=== PATIENT | male | born 1935 | race Caucasian/White ===

== ENCOUNTER → 2017-11-21 | Outpatient (CLI) | payer MEDICARE, BC ==
[~2017-11-21] MED LIST: ASPI325T6 PO; ASPIRIN 81M81 MG/TA2 PO; CHEMO; COUMADIN 5MG5 MG/TAB PO; DOXYCYCLINE 10100 MG PO; NO HOME MEDICATIONS; NORCO 325 MG-51 TAB PO; PRAVACHOL 40MG40 MG PO; VENTOLIN0.09 MG IH; ZOVIRAX400 MG PO; ZYLOPRIM 300MG300 MG PO
== END ==
LOC: COL.VAS 09:22
DX: I82.B12 Acute embolism and thrombosis of left subclavian vein (principal); I82.612 Acute embolism and thrombosis of superficial veins of left upper extremity; Z86.2 Personal history of diseases of the blood and blood-forming organs and certain disorders involving the immune mechanism

== ENCOUNTER → 2018-03-23 | Outpatient (CLI) | payer MEDICARE, BC | LOC: COL.RAD 11:33 | DX: G31.9 Degenerative disease of nervous system, unspecified (principal); I67.82 Cerebral ischemia ==

== ENCOUNTER → 2018-04-03 | Outpatient (CLI) | payer MEDICARE, BC | LOC: COL.CARD 10:13 | DX: R41.3 Other amnesia (principal); R55 Syncope and collapse ==

== ENCOUNTER → 2018-05-30 | Outpatient (CLI) | payer MEDICARE, BC | LOC: COL.RAD 09:14 | DX: Z08 Encounter for follow-up examination after completed treatment for malignant neoplasm (principal); R91.8 Other nonspecific abnormal finding of lung field | CPT/HCPCS: Q9967 ==

== ENCOUNTER 2018-08-24 05:03 | Day surgery (SDC) | payer MEDICARE, BC ==
[~2018-08-24] VITALS: Ht 185.4 cm; Wt 76.9 kg
[2018-08-24 05:44] VITALS: BP 152/69; PULSE 69; TEMP 97.5
[2018-08-24] MEDS ORDERED: TYLENOL 500MG500 MG PO (05:47)
[2018-08-24] MEDS ORDERED: ELIQUIS 5MG PO (05:47)
[2018-08-24 08:56] VITALS: BP 126/60; PULSE 66
[2018-08-24] MEDS ORDERED: NORCO 325 MG-51 TAB PO (09:07)
[2018-08-24] MEDS ORDERED: COLACE 100100 MG/CAP PO (09:07)
[2018-08-24 09:11] VITALS: BP 134/62; PULSE 66
[2018-08-24 09:26] VITALS: BP 128/57; PULSE 68
[2018-08-24 09:41] VITALS: BP 136/68; PULSE 69
[2018-08-24 09:56] VITALS: BP 125/64; PULSE 64
== END 2018-08-24 10:23 | disposition home or self-care (01) ==
LOC: SDCO 05:03
DX: K40.90 Unilateral inguinal hernia, without obstruction or gangrene, not specified as recurrent (principal); D17.6 Benign lipomatous neoplasm of spermatic cord; M19.90 Unspecified osteoarthritis, unspecified site; D75.1 Secondary polycythemia; N18.9 Chronic kidney disease, unspecified; R43.2 Parageusia; F17.210 Nicotine dependence, cigarettes, uncomplicated; C91.90 Lymphoid leukemia, unspecified not having achieved remission; I82.90 Acute embolism and thrombosis of unspecified vein; Z79.01 Long term (current) use of anticoagulants; Z85.820 Personal history of malignant melanoma of skin; Z90.79 Acquired absence of other genital organ(s); Z90.49 Acquired absence of other specified parts of digestive tract; Z88.5 Allergy status to narcotic agent; Z88.1 Allergy status to other antibiotic agents; Z85.46 Personal history of malignant neoplasm of prostate; Z85.038 Personal history of other malignant neoplasm of large intestine; Z85.72 Personal history of non-Hodgkin lymphomas; Z80.42 Family history of malignant neoplasm of prostate
CPT/HCPCS: C1781; J2405; J2704; J3010; J7120

== ENCOUNTER 2018-10-04 15:26 | Inpatient (IN) | payer MEDICARE, BC ==
[~2018-10-04] VITALS: Ht 185.4 cm; Wt 75.9 kg
[~2018-10-04 15:26] MED LIST changes: +COLACE 100100 MG/CAP PO; +ELIQUIS 5MG PO; +TYLENOL 500MG500 MG PO
[2018-10-04 16:10] LABS: ARTERIAL BLD GAS O2 SATURATION 93.9 % (92-100); ARTERIAL BLD GAS TCO2 CT 22.6; ARTERIAL BLOOD GAS HCO3 21.8 meq/L (22-26); ARTERIAL BLOOD GAS PCO2 27.9 mmHg (35-45); ARTERIAL BLOOD GAS PO2 66.2 mmHg (80-100); ARTERIAL BLOOD GAS pH 7.51 (7.35-7.45)
[2018-10-04 16:10] LABS: HEMATOCRIT 40.3 % (42.0-52.0); HEMOGLOBIN 13.6 g/dl (13.5-18.0); MEAN CELL VOLUME 98 fl (80.0-100.0); MEAN CORPUSCULAR HEMOGLOBIN 33 pg (27.0-31.0); MEAN CORPUSCULAR HGB CONC 34 g/dl (33.0-37.0); MEAN PLATELET VOLUME 9.6 fl (7.4-10.4); PLATELET COUNT 250 K/mm3 (130-400); RED BLOOD COUNT 4.12 M/mm3 (4.20-5.60); REDCELL DISTRIBUTION WIDTH-CV 12.5 % (11.5-14.5)
[2018-10-04 16:29] LABS: ALBUMIN 3.5 gm/dL (3.5-5.0); BILIRUBIN,TOTAL 0.5 mg/dL (0.0-1.0); CALCIUM 9.1 mg/dL (8.4-10.2); CREATININE, serum 1.56 mg/dL (0.66-1.25); POTASSIUM 4.2 mmol/L (3.4-5.0); TOTAL PROTEIN 6.5 gm/dL (6.4-8.2)
[2018-10-04 16:31] LABS: BAND 7 % (0-10); LYMPHOCYTE 8 % (20.0-51.0); NEUTROPHILS 82 % (42.0-75.2); PLATELET ESTIMATE NORMAL (NORMAL)
[2018-10-04 16:38] LABS: TROPONIN-I 0.018 ng/mL (0.000-0.034)
[2018-10-04 16:40] LABS: C-REACTIVE PROTEIN 24.1 mg/dL (0.0-0.9)
[2018-10-04 19:54] VITALS: BP 130/51; PULSE 89; TEMP 97
[2018-10-05] VITALS (7 sets, daily range): BP systolic 123–149; BP diastolic 48–78; PULSE 66–76; TEMP 97.4–98.6
[2018-10-05 06:43] LABS: MEAN CELL VOLUME 99 fl (80.0-100.0); MEAN CORPUSCULAR HGB CONC 34 g/dl (33.0-37.0); MEAN PLATELET VOLUME 9.6 fl (7.4-10.4); PLATELET COUNT 180 K/mm3 (130-400); RED BLOOD COUNT 3.36 M/mm3 (4.20-5.60); REDCELL DISTRIBUTION WIDTH-CV 12.6 % (11.5-14.5)
[2018-10-05 06:54] LABS: HEMATOCRIT 33.3 % (42.0-52.0); HEMOGLOBIN 11.2 g/dl (13.5-18.0); MEAN CORPUSCULAR HEMOGLOBIN 33 pg (27.0-31.0)
[2018-10-05 06:58] LABS: CALCIUM 8.4 mg/dL (8.4-10.2); CREATININE, serum 1.29 mg/dL (0.66-1.25); MAGNESIUM 2.1 mg/dL (1.6-2.3); POTASSIUM 3.7 mmol/L (3.4-5.0)
[2018-10-05 07:21] LABS: BAND 29 % (0-10); LYMPHOCYTE 8 % (20.0-51.0); NEUTROPHILS 59 % (42.0-75.2)
[2018-10-05 07:22] LABS: PLATELET ESTIMATE NORMAL (NORMAL)
[2018-10-06 02:46] VITALS: BP 145/69; PULSE 68
[2018-10-06 06:12] LABS: MEAN CELL VOLUME 99 fl (80.0-100.0); MEAN CORPUSCULAR HEMOGLOBIN 33 pg (27.0-31.0); MEAN CORPUSCULAR HGB CONC 33 g/dl (33.0-37.0); MEAN PLATELET VOLUME 9.8 fl (7.4-10.4); PLATELET COUNT 198 K/mm3 (130-400); RED BLOOD COUNT 3.31 M/mm3 (4.20-5.60); REDCELL DISTRIBUTION WIDTH-CV 12.6 % (11.5-14.5)
[2018-10-06 06:16] LABS: HEMATOCRIT 32.9 % (42.0-52.0)
[2018-10-06 06:22] LABS: CALCIUM 8.5 mg/dL (8.4-10.2); CREATININE, serum 1.24 mg/dL (0.66-1.25); POTASSIUM 3.7 mmol/L (3.4-5.0)
[2018-10-06 07:10] LABS: BAND 10 % (0-10); EOSINOPHIL 1 % (0-4); LYMPHOCYTE 2 % (20.0-51.0); NEUTROPHILS 77 % (42.0-75.2); PLATELET ESTIMATE NORMAL (NORMAL)
[2018-10-06 08:00] VITALS: BP 146/69; PULSE 74; TEMP 97.2
[2018-10-06] MEDS ORDERED: LEVAQUIN 750MG750 M1 PO (10:00)
[2018-10-06] MEDS ORDERED: PREDNISONE20 MG PO (10:00)
[2018-10-06] MEDS ORDERED: VENTOLIN0.09 MG IH (10:01)
== END 2018-10-06 11:15 | disposition home or self-care (01) | DRG 194 ==
LOC: COL.ER 15:26 → MEDICAL 17:16
PROVIDERS: Emergency Medicine; Internal Medicine; Physician Assistant
DX: J12.1 Respiratory syncytial virus pneumonia (principal); E44.0 Moderate protein-calorie malnutrition; C85.90 Non-Hodgkin lymphoma, unspecified, unspecified site; C91.10 Chronic lymphocytic leukemia of B-cell type not having achieved remission; Z68.22 Body mass index [BMI] 22.0-22.9, adult; Z85.46 Personal history of malignant neoplasm of prostate; Z85.030 Personal history of malignant carcinoid tumor of large intestine; Z79.01 Long term (current) use of anticoagulants; Z86.718 Personal history of other venous thrombosis and embolism; F17.210 Nicotine dependence, cigarettes, uncomplicated; N18.9 Chronic kidney disease, unspecified
CPT/HCPCS: 99222-AI; 99231-AI; 99239; A4216; J0696; J1956; J7030

== ENCOUNTER 2019-04-04 09:34 | Observation (INO) | payer MEDICARE, BC ==
[~2019-04-04] VITALS: Ht 188 cm; Wt 75.4 kg
[~2019-04-04 09:34] MED LIST changes: +LEVAQUIN 750MG750 M1 PO; +PREDNISONE20 MG PO
[2019-04-04] MEDS ORDERED: IMBRUVICA280 MG PO (09:47)
[2019-04-04 10:24] LABS: HEMATOCRIT 42.3 % (42.0-52.0); HEMOGLOBIN 14.2 g/dl (13.5-18.0); MEAN CELL VOLUME 98 fl (80.0-100.0); MEAN CORPUSCULAR HEMOGLOBIN 33 pg (27.0-31.0); MEAN CORPUSCULAR HGB CONC 34 g/dl (33.0-37.0); MEAN PLATELET VOLUME 10.4 fl (7.4-10.4); PLATELET COUNT 100 K/mm3 (130-400); RED BLOOD COUNT 4.31 M/mm3 (4.20-5.60); REDCELL DISTRIBUTION WIDTH-CV 13.2 % (11.5-14.5)
[2019-04-04 10:25] LABS: PROTHROMBIN TIME 12.2 SECONDS (9.7-12.8)
[2019-04-04 10:32] LABS: ALANINE AMINOTRANSFERASE 12 U/L (21-72); ALBUMIN 3.3 gm/dL (3.5-5.0); ALKALINE PHOSPHATASE 82 U/L (50-136); ANION GAP 9 mmol/L (7-16); AST,SGOT 18 U/L (15-37); BILIRUBIN,TOTAL 0.5 mg/dL (0.0-1.0); BLOOD UREA NITROGEN 15 mg/dL (9-20); CALCIUM 8.6 mg/dL (8.4-10.2); CARBON DIOXIDE 29 mmol/L (22-30); CHLORIDE 96 mmol/L (98-107); CREATININE, serum 1.29 (0.66-1.25); GLUCOSE 82 mg/dL (74-106); POTASSIUM 4.6 mmol/L (3.4-5.0); SODIUM 133 mmol/L (137-145); TOTAL PROTEIN 5.7 gm/dL (6.4-8.2)
[2019-04-04 10:43] LABS: BAND 5 % (0-10); LYMPHOCYTE 27 % (20.0-51.0); NEUTROPHILS 59 % (42.0-75.2); PLATELET ESTIMATE DECREASED (NORMAL)
[2019-04-04 10:55] LABS: TROPONIN-I < 0.012 ng/mL (0.000-0.035)
[2019-04-04 14:49] VITALS: BP 164/65; PULSE 69; TEMP 98.4
[2019-04-04 15:09] VITALS: BP 160/71; PULSE 73
[2019-04-04 15:11] VITALS: BP 148/67; PULSE 73
--- NOTE | 2019-04-04 17:30 | NUR ---
Arrived to the room at this time. No pain or needs reported. The patient was oriented to the room. Initial assessment completed. No further syncope per the patient. The call light is in place.
--- NOTE | 2019-04-04 19:45 | NUR ---
Some confusion about plan of care. Dr. Hogue here to see the patient. All questions answered per Dr. Hogue. The patient voiced he was happy with care.
--- NOTE | 2019-04-04 19:46 | NUR ---
report given to SAL Bhagat to resume care.
--- NOTE | 2019-04-04 20:39 | NUR ---
Patient resting in bed, assessment completed, VSS, afebrile, denies pain. No evening medications tonight. Alert and oriented x4. No needs at this time.
[2019-04-05 00:18] VITALS: BP 167/91; PULSE 59; TEMP 98.1
[2019-04-05 03:23] VITALS: BP 155/79; PULSE 70; TEMP 98.2
--- NOTE | 2019-04-05 05:12 | NUR ---
Pt slept most of the night, VSS, afebrile. No needs at this time.
[2019-04-05 07:03] LABS: HEMATOCRIT 43.5 % (42.0-52.0); HEMOGLOBIN 14.6 g/dl (13.5-18.0); MEAN CELL VOLUME 96 fl (80.0-100.0); MEAN CORPUSCULAR HEMOGLOBIN 32 pg (27.0-31.0); MEAN CORPUSCULAR HGB CONC 34 g/dl (33.0-37.0); PLATELET COUNT 84 K/mm3 (130-400); RED BLOOD COUNT 4.52 M/mm3 (4.20-5.60); REDCELL DISTRIBUTION WIDTH-CV 13.2 % (11.5-14.5)
[2019-04-05 07:17] LABS: ANION GAP 9 mmol/L (7-16); BLOOD UREA NITROGEN 16 mg/dL (9-20); CALCIUM 8.5 mg/dL (8.4-10.2); CARBON DIOXIDE 26 mmol/L (22-30); CHLORIDE 99 mmol/L (98-107); CREATININE, serum 1.28 (0.66-1.25); GLUCOSE 83 mg/dL (74-106); POTASSIUM 4.1 mmol/L (3.4-5.0); SODIUM 134 mmol/L (137-145)
[2019-04-05 07:28] LABS: TROPONIN-I < 0.012 ng/mL (0.000-0.035)
[2019-04-05 07:41] LABS: EOSINOPHIL 1 % (0-4); LYMPHOCYTE 20 % (20.0-51.0); NEUTROPHILS 73 % (42.0-75.2); PLATELET ESTIMATE DECREASED (NORMAL)
[2019-04-05 08:31] VITALS: BP 125/64; PULSE 72; TEMP 97.8
--- NOTE | 2019-04-05 09:36 | NUR ---
First visit from the dental laboratory manager. No needs right now.
--- NOTE | 2019-04-05 09:55 | NUR ---
INES met with the patient, patient's (Eve Arreaga), and son to discuss discharge plan. The patient lives in [place] with his . He reports independence with ADLs and does not use any DME. The patient's PCP is Dr. Bernard Justin and he receives his medications by delivery through [facility] in [place]. He reports no difficulties obtaining his meds. The patient's Living Will is in EMR. He states that he does have a DPOA-HC completed and that it is his daughter, Nubia. The patient plans to return home with his upon discharge. No additional needs at this time.
--- NOTE | 2019-04-05 10:28 | NUR ---
Family is at the bedside. No complaints or need over night. Plan to place a holter monitor and discharge home.
[2019-04-05 11:11] VITALS: BP 137/80; PULSE 65; TEMP 97.9
--- NOTE | 2019-04-05 12:17 | NUR ---
Discharge education completed with the patient and his family. All questions answered.
== END 2019-04-05 12:18 | disposition home or self-care (01) ==
LOC: COL.ER 09:34 → MEDICAL 13:04
PROVIDERS: Emergency Medicine; Physician Assistant; ADMIT Student in an Organized Health Care Education/Training Program
DX: R55 Syncope and collapse (principal); Z86.711 Personal history of pulmonary embolism; Z86.718 Personal history of other venous thrombosis and embolism; Z85.46 Personal history of malignant neoplasm of prostate; Z85.038 Personal history of other malignant neoplasm of large intestine; Z85.72 Personal history of non-Hodgkin lymphomas; Z85.6 Personal history of leukemia; F17.210 Nicotine dependence, cigarettes, uncomplicated; J32.4 Chronic pansinusitis; E87.1 Hypo-osmolality and hyponatremia; N18.9 Chronic kidney disease, unspecified; Z79.01 Long term (current) use of anticoagulants; Z88.1 Allergy status to other antibiotic agents; Z88.5 Allergy status to narcotic agent; I08.0 Rheumatic disorders of both mitral and aortic valves
CPT/HCPCS: G0378; Q9967

== ENCOUNTER → 2019-07-20 | Outpatient (CLI) | payer MEDICARE, BC ==
[~2019-07-20] MED LIST changes: +IMBRUVICA280 MG PO
== END ==
LOC: COL.RAD 12:55
DX: Z13.6 Encounter for screening for cardiovascular disorders (principal); R22.32 Localized swelling, mass and lump, left upper limb; Z86.718 Personal history of other venous thrombosis and embolism

== ENCOUNTER 2020-08-11 11:42 | Inpatient (IN) | payer MEDICARE, BC ==
[~2020-08-11] VITALS: Ht 188 cm; Wt 69.0 kg
[2020-08-11] VITALS (296 sets, daily range): BP systolic 123–130; BP diastolic 68–69; PULSE 69–82; TEMP 97.4–98.7; O2SAT 66–100
[2020-08-11] MEDS ORDERED: TOPROL XL 50MG50 MG PO (12:28)
[2020-08-11 13:40] LABS: BASO % 0.3 % (0.0-2.0); EOS % 0.1 % (0-4.0); GRAN # 9.9 (1.4-6.5); GRAN % 82.5 % (42.2-75.2); LYMPH # 1.4 (1.2-3.4); LYMPH % 11.5 % (20.0-51.0); MEAN CELL VOLUME 97 fl (80.0-100.0); MEAN CORPUSCULAR HEMOGLOBIN 32 pg (27.0-31.0); MEAN CORPUSCULAR HGB CONC 33 g/dl (33.0-37.0); MEAN PLATELET VOLUME 12.4 fl (7.4-10.4); MONO # 0.5 (0.1-0.6); MONO % 4.3 % (1.7-9.3); PLATELET COUNT 134 K/mm3 (130-400); RED BLOOD COUNT 4.03 M/mm3 (4.20-5.60); REDCELL DISTRIBUTION WIDTH-CV 13.1 % (11.5-14.5)
[2020-08-11 13:45] LABS: INR 1.4 (0.8-3.0); PROTHROMBIN TIME 15.2 SECONDS (9.7-12.8)
[2020-08-11 13:45] LABS: COLLECTION METHOD CLEAN CATCH
[2020-08-11 14:02] LABS: PH 5 (5-8); SQUAMOUS EPITHELIAL None Seen /hpf; URINE APPEARANCE Cloudy; URINE BACTERIA Many /hpf; URINE BILIRUBIN Negative (NEGATIVE); URINE BLOOD 2+ (NEGATIVE); URINE COLOR Yellow; URINE GLUCOSE Negative (NEGATIVE); URINE KETONE Trace (NEGATIVE); URINE LEUKOCYTE ESTERASE 2+ (NEGATIVE); URINE NITRATE Negative (NEGATIVE); URINE PROTEIN(semi-quant) 1+ (NEGATIVE); URINE UROBILINOGEN >=4.0 mg/dL (NEGATIVE)
[2020-08-11 14:02] LABS: ALBUMIN 2.6 gm/dL (3.5-5.0); BILIRUBIN,TOTAL 0.7 mg/dL (0.0-1.0); CALCIUM 8.1 mg/dL (8.4-10.2); CREATININE, serum 2.25 (0.66-1.25); POTASSIUM 3.6 mmol/L (3.4-5.0); TOTAL PROTEIN 5.1 gm/dL (6.4-8.2)
[2020-08-11 14:14] LABS: C-REACTIVE PROTEIN 18.7 mg/dL (0.0-0.9)
[2020-08-11 14:16] LABS: TROPONIN-I 0.038 ng/mL (0.000-0.035)
--- NOTE | 2020-08-11 19:30 | NUR ---
received report from SAL Shelton.
--- NOTE | 2020-08-11 19:53 | NUR ---
Patient arrived to unit via bed from ED at approximately 1715. Patient remains alert and oriented, answers questions appropriately. Daughter at bedside and assisted in answering questions about medications and medical history. Patient is able to use urinal independently, urine is clear and catrina. Patient had been incontinent of stool upon arrival from ED, stool sample collected per order. IVF continue, patient denies pain or needs at this time, call light within reach, rails up, bed alarm on.
--- NOTE | 2020-08-11 21:10 | NUR ---
pt had a run of V tach about 4-5 secs long, pt denies any pain/discomfort, VSS. raulito Saldana notified.
[2020-08-12] VITALS (382 sets, daily range): BP systolic 121–143; BP diastolic 56–76; PULSE 63–78; TEMP 97.5–98.1; O2SAT 62–100
--- NOTE | 2020-08-12 04:45 | NUR ---
report given to SAL Moses. care transferred at this time.
[2020-08-12 05:07] LABS: BASO % 0.2 % (0.0-2.0); EOS % 0.2 % (0-4.0); GRAN # 6.8 (1.4-6.5); GRAN % 80.8 % (42.2-75.2); HEMATOCRIT 33.9 % (42.0-52.0); HEMOGLOBIN 11.4 g/dl (13.5-18.0); LYMPH # 1.1 (1.2-3.4); MEAN CELL VOLUME 95 fl (80.0-100.0); MEAN CORPUSCULAR HEMOGLOBIN 32 pg (27.0-31.0); MEAN CORPUSCULAR HGB CONC 34 g/dl (33.0-37.0); MONO # 0.4 (0.1-0.6); MONO % 4.5 % (1.7-9.3); PLATELET COUNT 119 K/mm3 (130-400); RED BLOOD COUNT 3.56 M/mm3 (4.20-5.60); REDCELL DISTRIBUTION WIDTH-CV 13.1 % (11.5-14.5)
[2020-08-12 05:16] LABS: CALCIUM 7.7 mg/dL (8.4-10.2); CREATININE, serum 1.86 (0.66-1.25); POTASSIUM 3.5 mmol/L (3.4-5.0)
[2020-08-12 05:28] LABS: TROPONIN-I 0.021 ng/mL (0.000-0.035)
--- NOTE | 2020-08-12 11:12 | NUR ---
Shipwright Apprentice met with patient and patient's daughter in [place] (ph#[phone]) to discuss discharge planning. Patient lives alone in [place] and sees Dr. Molina for primary care. Patient has most of his medications mailed to him from the [facility] and also obtains some medications from [facility] in [place] as needed. Patient has a cane and walker at home. Patient reports he is normally independent with ADLS but has needed some more assistance lately. Patient states he has had a couple falls at home recently. Patient states his daughter, Deedee stayed with him for a short time to provide some assistance. Patient states he has DPOA-HC with an claims attorney, Robina in [place]. Patient is not and has four children: Peter Bowser (ph#[phone]), Deedee, Nubia, and Thierry. Patient's daughter in [place] expressed interest in Home Health Services. SW provided Medicare.gov list of HH agencies that serve [place] and patient selected [facility] out of [place]. INES contacted Julio Cesar at [facility] and faxed referral. INES then contacted Jailyn at [facility], [facility], & [employer] office office who advised she will fax patient's DPOA-HC over to INES. INES collaborated with CHASE Burton and CHASE Bowers Student who advise patient will likely be appropriate to return home with services but will continue to work with patient and provide updates on recommendations as needed. INES will continue to follow.
--- NOTE | 2020-08-12 14:09 | NUR ---
Track Dresser received copy of DPOA-HC and placed copy on patient's chart.
--- NOTE | 2020-08-12 22:14 | NUR ---
Pt resting in bed, assessment completed. pt denies pain overall but reported pain when being changed in the coxyx region. some blood visible when wiped but none visible in stool. lower back adn coxyx are also reddened. alert and oriented, heart rate is irregular afib rate controlled. meds given per MAR, no other needs at this time.
[2020-08-13 03:55] VITALS: BP 138/62; PULSE 72; TEMP 97.5
--- NOTE | 2020-08-13 05:03 | NUR ---
pt sleeping in bed most of the night, one episode of loose stools during the shift. pt only reported pain in the coxyx area when being changed. no other needs at this time, will continue to monitor.
[2020-08-13 06:43] LABS: HEMATOCRIT 38.7 % (42.0-52.0); HEMOGLOBIN 12.5 g/dl (13.5-18.0); MEAN CELL VOLUME 98 fl (80.0-100.0); MEAN CORPUSCULAR HEMOGLOBIN 32 pg (27.0-31.0); MEAN CORPUSCULAR HGB CONC 32 g/dl (33.0-37.0); MEAN PLATELET VOLUME 11.7 fl (7.4-10.4); PLATELET COUNT 145 K/mm3 (130-400); RED BLOOD COUNT 3.94 M/mm3 (4.20-5.60); REDCELL DISTRIBUTION WIDTH-CV 13.2 % (11.5-14.5)
[2020-08-13 07:02] LABS: CALCIUM 7.6 mg/dL (8.4-10.2); CREATININE, serum 1.77 (0.66-1.25); POTASSIUM 3.3 mmol/L (3.4-5.0)
[2020-08-13 07:30] VITALS: BP 138/68; PULSE 71; TEMP 97.6
[2020-08-13 08:48] LABS: BAND 9 % (0-10); LYMPHOCYTE 21 % (20.0-51.0); METAMYELOCYTE 2 % (0-0); NEUTROPHILS 64 % (42.0-75.2); PLATELET ESTIMATE NORMAL (NORMAL)
[2020-08-13] MEDS ORDERED: OMNICEF 300MG300 MG PO ×2 (09:18)
[2020-08-13] MEDS ORDERED: VENTOLIN0.09 MG IH (09:19)
--- NOTE | 2020-08-13 09:35 | NUR ---
Initial visit; "Doc" thanked Chemic Mangler for looking in on him and offering God's blessings and to keep him in her prayers.
[2020-08-13 12:24] VITALS: BP 112/62; PULSE 78; TEMP 97.8
[2020-08-13 15:58] VITALS: BP 153/63; PULSE 71; TEMP 98.3
--- NOTE | 2020-08-13 16:02 | NUR ---
Biomedical Engineering Professor collaborated with Genesis at [facility] who advised they are good to accept referral. INES informed Genesis that tentative discharge date is tomorrow, 08/14/20. INES contacted patient's daughter in law, Miriam to provide update. Miriam advised she is the best point of contact to schedule initial visit for HH. INES contacted Genesis to ensure she had Miriam's phone numbers. INES will continue to follow.
--- NOTE | 2020-08-13 17:05 | NUR ---
PATIENT IS SITTING UP IN BED WATCHING TV. FAMILY HAS LEFT BEDSIDE. DENIES PAIN. CALL LIGHT IS WITHIN REACH.
[2020-08-13 19:25] VITALS: BP 130/56; PULSE 70; TEMP 97.6
--- NOTE | 2020-08-13 19:38 | NUR ---
Resting in bed. Assessment complete. Lungs clear. Heart sounds normal. Bowels active x4. Pulses present throughout. No edema noted. INT left wrist flushed without complications. Bilateral bruising to arms present. Denies pain. Denies needs at this time. Call light in reach.
[2020-08-13 23:09] VITALS: BP 143/65; PULSE 65; TEMP 97.7
--- NOTE | 2020-08-14 00:11 | NUR ---
Patient incontinent of bowel. Cares provided. Erthema to buttocks with excoriation to scrotum. Barrier cream applied. BM was loose/formed. Will monitor. Denies pain at this time. Call light in reach.
--- NOTE | 2020-08-14 02:04 | NUR ---
Resting in bed. Call light in reach.
[2020-08-14 03:34] VITALS: BP 162/59; PULSE 60; TEMP 97.9
--- NOTE | 2020-08-14 04:00 | NUR ---
Reports 5/10 generalized aches and pains. Given PRN tylenol. Incontinent of urine and bowel. Cares provided. Denies other needs at this time. Call light in reach.
[2020-08-14 04:50] VITALS: BP 146/67; PULSE 60
--- NOTE | 2020-08-14 05:20 | NUR ---
Patient incontinent of bowel and urine throughout night. Cares provided each time. Otherwise uneventful night. Resting in bed this AM. Call light in reach.
--- NOTE | 2020-08-14 07:10 | NUR ---
Report given to SAL Laird
[2020-08-14] MEDS ORDERED: BACTRIM 400 MG-1 TAB PO (09:23)
[2020-08-14] MEDS ORDERED: OMNICEF 300MG300 MG PO (10:31)
--- NOTE | 2020-08-14 10:57 | NUR ---
The patient is to discharge home today, 08/14 with [facility]. PT/OT/Nursing. INES faxed discharge orders and discharge summary. INES met with the patient and his [id number] Miriam to present the IM form. It was understood and Miriam signed the form. A copy was provided and original was placed in the chart. INES contacted Genesis with [facility] to provide patient update.
--- NOTE | 2020-08-14 13:55 | NUR ---
Primary nurse was assisted with [id number] patient care by [employer] [facility] Usha Justin and [employer] instructor Alexus Carrington RN-.
== END 2020-08-14 10:50 | disposition home health service (06) | DRG 871 ==
LOC: COL.ER 11:42 → ICU 14:30 → MEDICAL 08-12 13:00
PROVIDERS: Emergency Medicine; Physician Assistant; Student in an Organized Health Care Education/Training Program; ADMIT Internal Medicine
DX: A41.51 Sepsis due to Escherichia coli [E. coli] (principal); I21.A1 Myocardial infarction type 2; J18.9 Pneumonia, unspecified organism; N39.0 Urinary tract infection, site not specified; N17.9 Acute kidney failure, unspecified; C91.10 Chronic lymphocytic leukemia of B-cell type not having achieved remission; C85.90 Non-Hodgkin lymphoma, unspecified, unspecified site; E44.0 Moderate protein-calorie malnutrition; Z68.1 Body mass index [BMI] 19.9 or less, adult; A08.4 Viral intestinal infection, unspecified; N18.9 Chronic kidney disease, unspecified; E86.0 Dehydration; I48.91 Unspecified atrial fibrillation; R26.9 Unspecified abnormalities of gait and mobility; F17.210 Nicotine dependence, cigarettes, uncomplicated; J44.9 Chronic obstructive pulmonary disease, unspecified; Z79.01 Long term (current) use of anticoagulants; Z88.6 Allergy status to analgesic agent; Z85.46 Personal history of malignant neoplasm of prostate; Z85.038 Personal history of other malignant neoplasm of large intestine
CPT/HCPCS: 99223-AI; 99233-AI; 99239; J2543; J7030

== ENCOUNTER → 2021-02-19 | Outpatient (CLI) | payer MEDICARE, BC ==
[~2021-02-19] MED LIST changes: +BACTRIM 400 MG-1 TAB PO; +OMNICEF 300MG300 MG PO; +TOPROL XL 50MG50 MG PO
== END ==
LOC: COL.VAS 13:19
DX: M79.89 Other specified soft tissue disorders (principal); Z86.718 Personal history of other venous thrombosis and embolism

== ENCOUNTER → 2022-07-27 | Outpatient (CLI) | payer MEDICARE | LOC: COL.RAD 09:08 | DX: Z08 Encounter for follow-up examination after completed treatment for malignant neoplasm (principal); Z85.72 Personal history of non-Hodgkin lymphomas; R59.1 Generalized enlarged lymph nodes; R59.0 Localized enlarged lymph nodes | CPT/HCPCS: Q9967 ==